=== PATIENT | male | born 1950 | race Caucasian/White ===

== ENCOUNTER → 2020-10-14 13:30 | Outpatient (CLI) | payer MEDICARE, SELFPAY ==
--- NOTE | ~2020-10-14 | XR_ITS ---
EXAMINATION: XR knee RT 2V DATE: 10/14/2020 14:03 INDICATION: Right knee pain. TECHNIQUE: 2 views of right knee were obtained. COMPARISON: Right knee radiographs 01/06/2015 FINDINGS: Bone alignment is normal. No fracture. There is severe osteoarthritis of medial and patello femoral compartments and moderate osteoarthritis of lateral compartment. There is a moderate-sized kn ee joint effusion. IMPRESSION: 1. Severe right knee osteoarthritis. 2. Moderate-sized right knee joint effusion. Reviewed, dictated and finalized at location A.
== END ==
PROVIDERS: PCP Family Medicine; Visit Provider Family Medicine
DX: M17.11 Unilateral primary osteoarthritis, right knee (principal); M25.461 Effusion, right knee
CPT/HCPCS: 73560

== ENCOUNTER → 2021-03-16 02:30 | Outpatient (CLI) | payer MEDICARE, SELFPAY ==
[2021-03-16 20:46] LABS: SARS-CoV-2 RNA PCR Negative
== END ==
PROVIDERS: Physician Assistant; PCP Family Medicine; Visit Provider Family Medicine
DX: Z20.822 Contact with and (suspected) exposure to COVID-19 (principal)
CPT/HCPCS: C9803; U0003; U0005

== ENCOUNTER 2021-11-30 11:10 | Outpatient (CLI) | payer MEDICARE, SELFPAY ==
--- NOTE | ~2021-11-30 | XR_ITS ---
EXAMINATION: XR lumbar spine 2-3V DATE: 11/30/2021 11:28 INDICATION: Left-sided low back pain TECHNIQUE: Anteroposterior and lateral views of the lumbar spine, and cone-down lateral view of the l umbosacral junction were obtained. COMPARISON: 01/02/2015 FINDINGS: There are 3 mm of anterolisthesis of L4 on L5. There is mild loss of intervertebral disc sp mingo height at L5-S1. There is no fracture. The vertebral body heights are maintained. The interverteb ral disc spaces are otherwise normal. There is moderate facet joint osteoarthritis of the lower lumba r spine. There is moderate right and severe left osteoarthritis of the hips. IMPRESSION: 1. Moderate lumbar spondylosis with interval worsening since the comparison examination. Reviewed, dictated and finalized at location F. IMPRESSION: 1. Moderate lumbar spondylosis with interval worsening since the comparison exa mination.
== END 2021-11-30 11:11 | disposition home or self-care (01) ==
PROVIDERS: PCP Family Medicine; Visit Provider Nurse Practitioner Family
DX: M54.31 Sciatica, right side (principal); M47.896 Other spondylosis, lumbar region
CPT/HCPCS: 72100

== ENCOUNTER → 2022-01-22 08:27 | Outpatient (CLI) | payer MEDICARE, SELFPAY ==
--- NOTE | ~2022-01-22 | MR_ITS ---
EXAMINATION: MR lumbar spine wo con DATE: 01/22/2022 09:08 INDICATION: Low back pain and bilateral hip pain radiating down the legs TECHNIQUE: Magnetic resonance imaging (MRI) of the lumbar spine was performed without intravenous con trast. Sequences included sagittal T2-weighted FSE, sagittal T2-weighted FS FSE, sagittal T1-weighted FSE, and axial T2-weighted FSE. COMPARISON: Lumbar spine radiographs dated 11/30/2021 FINDINGS: 1 mm anterolisthesis L4 on L5. 4 mm retrolisthesis L5 on S1. Vertebral body heights are normal. T1 hy perintense hemangiomas at T12 and L4. Marrow signal is otherwise normal. Disc heights are normal. Victorina ular fissures at L1-L2, L2-L3, L4-L5 and L5-S1. The conus medullaris terminates at L1. There is letty l signal in the caudal spinal cord. The central canal is congenitally small from L2 through L5. Parav ertebral soft tissues are unremarkable. The following disc levels are specifically discussed: T12-L1: The disc does not extend beyond the endplate margin. There is mild left and moderate right fa cet joint osteoarthritis. There is mild right neural foraminal stenosis. There is minimal central can al stenosis. L1-L2: Disc is minimally bulging. There is mild hypertrophy of the ligamentum flavum. There is moder ate right and mild to moderate left facet joint osteoarthritis. There is mild bilateral neural forami nal stenosis. There is moderate central canal stenosis. L2-L3: Disc is mildly bulging. There is mild hypertrophy of the ligamentum flavum. There is right and moderate to severe left facet joint osteoarthritis. There is moderate bilateral, left greater than r ight neural foraminal stenosis. There is severe central canal stenosis with loss of CSF signal surrou nding the centrally clustered nerve roots. L3-L4: Disc is minimally bulging. There is hypertrophy of the ligamentum flavum. There is severe guille ateral facet joint osteoarthritis. There is left and mild to moderate right neural foraminal stenosis . There is mild to moderate central canal stenosis. L4-L5: Disc is mildly bulging. There is hypertrophy of the ligamentum flavum. There is severe bilater al facet joint osteoarthritis. There is moderate right and mild to moderate left neural foraminal charu nosis. There is severe central canal stenosis. L5-S1: Disc is mildly bulging with superimposed right foraminal zone disc extrusion with disc materia l extending to a 3 mm beyond the level of the inferior endplate of L5. There is mild to moderate righ t and moderate left facet joint osteoarthritis. There is moderate bilateral neural foraminal stenosis . There is mild central canal stenosis. IMPRESSION: 1. Congenitally small lumbar central canal with superimposed lumbar spondylosis including mild degene rative disc disease and moderate to severe facet osteoarthritis which results in severe central canal stenosis at L2-L3 and L4-L5. Reviewed, dictated and finalized at location A. IMPRESSION: 1. Congenitally small lumbar central canal with superimposed lumbar spondylosis including mild degenerative disc disease and moderate to severe facet osteoart hritis which results in severe central canal stenosis at L2-L3 and L4-L5.
== END ==
PROVIDERS: PCP Family Medicine; Visit Provider Nurse Practitioner Family
DX: M47.26 Other spondylosis with radiculopathy, lumbar region (principal); M51.36 Other intervertebral disc degeneration, lumbar region
CPT/HCPCS: 72148

== ENCOUNTER 2022-07-01 11:06 | Emergency (ER) | payer MEDICARE, SELFPAY ==
[2022-07-01 11:15] VITALS: BP 133/76; PULSE 86; RESP 16; TEMP 36.6; O2SAT 97
--- NOTE | 2022-07-01 11:40 | ED.URI ---
HPI - URI/Sore Throat General Chief Complaint: Upper Respiratory Infection Stated Complaint: sinus drainage, headache Time Seen by Provider: 07/01/22 11:30 Source: patient, RN notes reviewed and old records reviewed Mode of arrival: ambulatory Limitations: no limitations History of Present Illness HPI Narrative: 71-year-old male who presents to [facility] with complaints of sinus congestion yellow in color, headache, cough with expectoration of yellow phlegm. Patient denies any known fevers, chills or sweats admits to some body aches in his knees and shoulders. Patient reports that he has had COVID vaccinations and boosters and also influenza shot. Patient does state that he has had recent exposure to flu from granddaughter. MD elicited complaint: cough (productive), rhinorrhea and nasal congestion Pertinent past history: seasonal allergies and other (nasal fractures, jean) Pain scale (0-10): 4 Able to tolerate fluids by mouth: Yes Treatments prior to arrival: acetaminophen Related Data Home Medications Medication Instructions Recorded Confirmed omega-3 fatty acids 1,000 mg 1,000 mg PO DAILY 05/16/19 07/01/22 capsule (Fish Oil Concentrate) hydrocortisone 2.5 % topical cream 1 applic RECTAL DAILY PRN 10/27/20 07/01/22 with perineal applicator Hemorrhoids (Proctozone-HC) Allergies Allergy/AdvReac Type Severity Reaction Status Date / Time Penicillins Allergy Unknown Hives Verified 07/01/22 11:29 Review of Systems Review of Systems: CONSTITUTIONAL: Denies malaise, chills, sweats, or fever. EYES: Denies visual changes, redness, or discharge. ENT: Reports rhinorrhea, congestion, sinus pain, no otalgia or sore throat. CARDIOVASCULAR: Denies chest pain, palpitations, or edema. RESPIRATORY: Reports cough.? Denies dyspnea. GASTROINTESTINAL: Denies abdominal pain, nausea, vomiting, diarrhea SKIN: Denies rash or itching. MUSCULOSKELETAL: reports some myalgia. NEUROLOGIC: Reports headache. All systems reviewed & are unremarkable except as noted in HPI and below PMFSH Past Medical History Medical History Arthritis of right knee Generalized anxiety disorder History of fracture of nasal bone (~01/06/08) HLD (hyperlipidemia) HTN (hypertension) JEAN (obstructive sleep apnea) Right sided sciatica Seasonal allergic rhinitis Surgical History Surgical History History of nasal surgery (~01/12/08) History of nasal surgery (~01/08/09) corrective History of tonsillectomy (~01/01/02) Family History Family History Mother Cerebrovascular accident Father Family history of coronary artery disease Sibling , age 69 Lipedema Other Family history of cardiovascular disease Social History Social History Smoking status: Never smoker Second hand tobacco smoke exposure: No Alcohol intake: former Substance use: never Substance use type: does not use Gender identity (if verbalized by the patient): Male Sexual Orientation (if Verbalized by the Patient): Straight or Heterosexual Comments At time of signature, agree with nursing past medical, surgical, social and family history. There is no relevant family history pertinent to the presenting complaint Exam Narrative: GENERAL: Well-appearing, well-nourished, and in no acute distress. HEAD: Normocephalic EYES: PERRLA, conjunctivae clear ENT: Nares clear, turbinates edematous and erythematous, yellow discharge. Mucous membranes moist. TM pearly multani with dull light reflex bilaterally; no tragal tenderness. Oropharynx erythematous without lesions. Tonsils not present and throat without exudate, no drooling, no hoarseness, no trismus, uvula midline. NECK: Supple. No lymphadenopathy CHEST: Clear to auscultati
== END 2022-07-01 12:31 | disposition home or self-care (01) ==
PROVIDERS: Emergency Provider Registered Nurse; PCP Family Medicine
DX: J06.9 Acute upper respiratory infection, unspecified (principal); R05.9 Cough, unspecified; M17.11 Unilateral primary osteoarthritis, right knee; E78.5 Hyperlipidemia, unspecified; I10 Essential (primary) hypertension
CPT/HCPCS: 87804; 99213; G0463

== ENCOUNTER 2022-08-25 09:45 | Outpatient (RCR) | payer MEDICARE, SELFPAY ==
--- NOTE | 2022-06-16 15:29 | PTOPEVAL1 ---
Assessment and note entered by Karma Mancuso DPT Evaluation Information Assessment Status Evaluation Subjective Information Pt reports back pain and sciatica. Has radiated down both legs and had a steroid injection which did not help, and chiropractor made it worse. Has been given some pain meds and orders for PT. States he previously had an x-ray which showed a small opening for the nerve . Highest pain 9/10 and lowest 3/10. Pain radiates down to posterior R leg to toes and L to midcalf. Some pain into L groin. Pain increases throughout the day, with walking, sitting in a recliner. States his pain started about 2 years ago after limping due to R knee pain. Just started using a cane 2 weeks ago. Reports no falls. Not doing typical household activities like vacuuming, maintenance on cars, other housework. Difficulty with errands such as grocery shopping. Needs help to don socks. Cooks and showers independently. is disabled. Stairs at home to basement with handrail on both sides, tries to avoid doing if he can. Returns to [facility] end of July. History of fatty tumor removal in L low back in the 's. Reported Pain Level Pain Score 4: Self Report Assessment PT Clinical Summary The patient is presenting to skilled therapy with a progressing history of bilateral radiating low back pain. He presents with decreased lower extremity and core strength, signs of neural tension, decreased balance, and gait impairments. These are contributing to his recent cane use and difficulty with activities at home such as donning socks and standing/walking throughout the day. He will benefit from therapy to address these impairments and safely reduce pain and dysfunction . Plan of Care Interventions Electrical Stimulation,Gait Training,Hot Pack/Cold Pack,Manual Therapy,Mechanical Traction,Neuro Re- education,Patient/Caregiver Education,Therapeutic Activities,Therapeutic Exercise,Self-Care/Home Management,Ultrasound PT Services Indicated Yes Treatment Frequency and 2 times a week for 6 weeks Duration These treatments will address the objective and functional deficits as defined above. The patient will be advanced safely and appropriately in order for the patient to progress towards his/her prior level of function. Additional exercises will be introduced and as well as a comprehensive home exercise program upon discharge, if needed, ?to ensure carryover of functional gains achieved in the clinic
--- NOTE | 2022-07-28 10:45 | PTOPPROG ---
Assessment and note entered by Karma Mancuso DPT Evaluation Information Assessment Status Evaluation Subjective Information Highest pain in last week 11/09. Overall feels good with therapy, he is not getting as sharp of a pain. Still some dullness around his beltline. Reports less difficulty with ADL's at home like cooking, vacuuming, etc. Still some challenges and pain with anything requiring prolonged standing and will sit to modify. Feels he would benefit from continued therapy at this time. Saw his PCP last week and may be going to see Interventional Pain Management. Assessment PT Clinical Summary The patient has made good progress in therapy. He reports decreased pain overall and has been able to participate more in ADL's. He demonstrates improved strength, balance, and decreased signs of neural tension. He continues to have pain and difficulty with activities at home requiring prolonged standing and must modify. He will benefit from continued therapy to further address his pain and safely return to his prior level of function. Plan of Care Interventions Electrical Stimulation,Gait Training,Hot Pack/Cold Pack,Manual Therapy,Neuro Re-education,Patient/ Caregiver Education,Therapeutic Activities, Therapeutic Exercise,Self-Care/Home Management PT Services Indicated Yes Treatment Frequency and 2 times a week for 4 weeks Duration These treatments will address the objective and functional deficits as defined above. The patient will be advanced safely and appropriately in order for the patient to progress towards his/her prior level of function. Additional exercises will be introduced and as well as a comprehensive home exercise program upon discharge, if needed, ?to ensure carryover of functional gains achieved in the clinic. This treatment plan has been reviewed and agreement upon by the patient.
--- NOTE | 2022-08-25 10:28 | PTOPPROG ---
Assessment and note entered by Karma Mancuso DPT Evaluation Information Assessment Status Progress Subjective Information Highest pain in last week -10/10. States things are continuing to be better with therapy. Pain is not as high or as often, and it has centralized more. Pain tends to increase with sitting to drive , when the weather is rainy. Difficulty putting his socks and shoes on. Continued difficulty with vacuuming. Is also following up with pain management and had a steroid shot earlier this week. Assessment PT Clinical Summary The patient has continued to make good progress in therapy. He reports further decreased intensity and frequency of pain, and his pain location has centralized. He demonstrates improvements in his LE strength, walking speed, and balance. He continues to report difficulty with prolonged walking or sitting and activities like vacuuming. He will benefit from continued therapy to further address pain and safely return to prior level of function. Plan of Care Interventions Electrical Stimulation,Hot Pack/Cold Pack,Manual Therapy,Neuro Re-education,Patient/Caregiver Education,Therapeutic Activities,Therapeutic Exercise,Self-Care/Home Management PT Services Indicated Yes Treatment Frequency and 1 time a week for 4 weeks Duration These treatments will address the objective and functional deficits as defined above. The patient will be advanced safely and appropriately in order for the patient to progress towards his/her prior level of function. Additional exercises will be introduced and as well as a comprehensive home exercise program upon discharge, if needed, ?to ensure carryover of functional gains achieved in the clinic. This treatment plan has been reviewed and agreement upon by the patient.
--- NOTE | 2022-08-30 10:44 | PTOPDC ---
Assessment and note entered by Karma Mancuso DPGold Evaluation Information Assessment Status Discharge - Pt Not Presen Subjective Information Highest pain in last week 3-10/10. States things are continuing to be better with therapy. Pain is not as high or as often, and it has centralized more. Pain tends to increase with sitting to drive , when the weather is rainy. Difficulty putting his socks and shoes on. Continued difficulty with vacuuming. Is also following up with pain management and had a steroid shot earlier this week. Assessment PT Clinical Summary Patient is self discharging at this time.
== END 2022-08-30 11:54 | disposition home or self-care (01) ==
LOC: ANHPT 09:45
PROVIDERS: PCP Family Medicine; Visit Provider Physician Assistant
DX: M54.50 Low back pain, unspecified (principal); M54.31 Sciatica, right side
CPT/HCPCS: 97014; 97110; 97140; 97161; 97530; G0283

== ENCOUNTER → 2022-11-01 15:58 | Outpatient (CLI) | payer MEDICARE, SELFPAY ==
--- NOTE | ~2022-11-01 | MR_ITS ---
MRI of the lumbar spine Clinical History: Back pain Technique: Axial T2-weighted images, and sagittal T1-weighted, T2-weighted, and T2 fat-sat images wer e acquired. COMPARISON: 01/22/2022 Findings: No fracture or sublocation of the lumbar spine seen. Osseous alignment is unchanged. No kiko picious bone marrow signal abnormality seen. At L1-L2, minimal disc bulge and advanced facet arthropathy result in mild thecal sac compression/jasbir tral canal stenosis. There is mild bilateral neural foraminal narrowing, left worse than right. At L2-L3, disc bulge and severe facet arthropathy contribute to moderate to severe thecal sac ting shira/spinal canal stenosis. There is severe left neural foraminal narrowing and mild right neural for aminal narrowing. At L3-L4, disc bulge and severe facet arthropathy result in mild central canal stenosis. There is mil d right neural foraminal narrowing. Left neural foramen preserved. At L4-L5, disc bulge and severe facet arthropathy result in severe spinal canal stenosis/thecal sac c ompression. There is mild to moderate bilateral neural foraminal narrowing. At L5-S1, there is severe facet arthropathy with minimal disc bulge. No wilmer central canal stenosis. There is mild to moderate bilateral neural foraminal narrowing. Paravertebral soft tissues are unremarkable. Impression: Severe degenerative spondylosis, as detailed above, especially at L2-L3 and L4-L5. Reviewed, dictated and finalized at [facility]. Impression: Severe degenerative spondylosis, as detailed above, especially at L2-L3 and L4- L5.
== END ==
PROVIDERS: PCP Family Medicine; Visit Provider Physician Assistant
DX: M47.896 Other spondylosis, lumbar region (principal)
CPT/HCPCS: 72148